=== PATIENT | female | born 1955 | race Caucasian/White ===

== ENCOUNTER 2017-08-18 14:39 | Emergency (ER) | payer BC ==
[2017-08-18 15:08] VITALS: BP 161/90
--- NOTE | 2017-08-18 15:32 | RAD ---
HISTORY: Left ankle and heel pain COMPARISONS: None VIEWS: 6, Frontal, lateral, and oblique views of the left ankle and left foot FINDINGS: BONE DENSITY: There is diffuse osteopenia. BONES: There is no displaced fracture. There are calcaneal enthesophytes. JOINTS: There is no arthropathy. ALIGNMENT: There is no dislocation. SOFT TISSUES: Unremarkable. OTHER FINDINGS: None. IMPRESSION: 1. OSTEOPENIA. 2. HEEL SPURS. 3. NO ACUTE OSSEOUS INJURY. IF SYMPTOMS PERSIST, RECOMMEND REPEAT IMAGING.
--- NOTE | 2017-08-27 14:49 | UC ---
Chaz Almonte Natalie, scribed for Eldon Crabtree MD on 08/18/17 at 1523 . Lower Extremity/Ankle HPI - HPI Summary HPI Summary: The patient is a 62 y/o F presenting to [facility] c/o left foot and ankle pain starting in May 2017. She was at work a few months ago when she slid off her clog, and the pain has been present since then. The pain is worst in her heel, and is currently rated 3/10 in severity. The pt claims she thinks she has plantar fasciitis because she's had similar pain in the past, but it was much more mild than this. She has hx of HTN and anxiety, and she recently had varicose vein surgery. Nonsmoker. - History of Current Complaint Chief Complaint: UCLowerExtremity Stated Complaint: LEFT FOOT COMPLAINT Hx Obtained From: Patient Onset/Duration: Gradual Onset, Lasting Weeks - starting in May 2017, Still Present Severity Initially: Moderate Severity Currently: Mild Pain Intensity: 3 Pain Scale Used: 0-10 Numeric Aggravating Factor(s): Nothing Alleviating Factor(s): Nothing Able to Bear Weight: Yes - Allergies/Home Medications Allergies/Adverse Reactions: Allergies Allergy/AdvReac Type Severity Reaction Status Date / Time meperidine [From Demerol] AdvReac GI Upset Verified 08/18/17 15:00 Home Medications: Home Medications Albuterol HFA INHALER* [Ventolin HFA Inhaler*] 1 puff INH Q4H PRN 08/18/17 [ History Confirmed 08/18/17] Bromelains [Bromelain] 500 mg PO BID 08/18/17 [History Confirmed 08/18/17] Bupropion XL* [Wellbutrin XL *] 150 mg PO DAILY 08/18/17 [History Confirmed ] Loratadine [Claritin 10 MG CAP] 10 mg PO DAILY 08/18/17 [History Confirmed 08/18] Nebivolol HCl [Bystolic] 10 mg PO DAILY 08/18/17 [History Confirmed 08/18/17] PMH/Surg Hx/FS Hx/Imm Hx Other Cardiovascular History: Hypertension Other Psychological History: Anxiety - Surgical History Surgery Procedure, Year, and Place: urinary stricture surgery. cataract removal. orbital fracture repair. varicose vein surgery L leg 2017 - Family History Known Family History: Positive: Cardiac Disease, Hypertension, Other - breast cancer in mother, kidney cancer in father - Social History Alcohol Use: None Substance Use Type: None Smoking Status (MU): Never Smoked Tobacco - Immunization History Vaccination Up to Date: Yes Review of Systems Skin: Negative - bruising Musculoskeletal: Other: - pain in left ankle and heel All Other Systems Reviewed And Are Negative: Yes Physical Exam Triage Information Reviewed: Yes Appearance: Well-Appearing Vital Signs: Initial Vital Signs Temp 98 F 08/18/17 15:01 Pulse 89 08/18/17 15:01 Resp 18 08/18/17 15:01 BP 161/90 08/18/17 15:01 Pulse Ox 95 08/18/17 15:01 Vital Signs Reviewed: Yes Eyes: Positive: Conjunctiva Clear ENT: Positive: Normal ENT inspection Respiratory: Positive: Lungs clear, Normal breath sounds, No respiratory distress Cardiovascular: Positive: RRR, No Murmur, Pulses Normal Musculoskeletal: Positive: Strength Intact, ROM Intact, Other: - left foot no deformity, no STS, no tenderness over the achilles tendon, no tenderness over the base of 5th metatarsal, non tender over the lateral and medial malleolus. Mild tender over the calcaneus. No bruising, no redness, no deformity. Neurological: Positive: Alert, Muscle Tone Normal Psychological: Positive: Normal Response To Family Diagnostics - Radiology Ankle XR Xray Interpretation: No Acute Changes - 1. Osteopenia. 2. Heel spurs. 3. No acute osseous injury. If symptoms persist, recommend repeat imaging. [facility] physician has reviewed this report. Radiology Interpretation Completed By: Radiologist Foot XR Xray Interpretation: No Acute Changes - 1. Osteopenia. 2. Heel spurs. 3. No acute osseous injury. If symptoms persist, recommend repeat imaging. [facility] physician has reviewed this report. Radiology Interpretation Completed By: Radiologist Lower Extremity Course/Dx - Course Course Of Treatment: the patient was told to follow up with pMD for BP recheck, and was told to follow up with orthopedics regarding her foot and for further recommendation. - Differential Dx/Diagnosis Provider Diagnoses: hypertension. plantar faciitis Discharge - Sign-Out/Discharge Documenting (check all that apply): Discharge/Admit/Transfer - Discharge Plan Condition: Good Disposition: HOME Discharge Disposition Comment: goood condition; home Patient Education Materials: Plantar Fasciitis (ED), Hypertension (ED), Plantar Fasciitis Exercises (ED) Referrals: Rosamaria Gutierrez MD [Primary Care Provider] - 2 Days Kolton Garcia MD [Medical Doctor] - 2 Days - Billing Disposition and Condition Condition: GOOD Disposition: HOME The documentation as recorded by the Chaz woody Natalie accurately reflects the service I personally performed and the decisions made by me, Eldon Crabtree MD.
== END 2017-08-18 15:45 | disposition home or self-care (01) ==
LOC: UCEAST 14:39
DX: M72.2 Plantar fascial fibromatosis (principal); M85.872 Other specified disorders of bone density and structure, left ankle and foot; M77.32 Calcaneal spur, left foot; I10 Essential (primary) hypertension; F41.9 Anxiety disorder, unspecified; Z88.5 Allergy status to narcotic agent
CPT/HCPCS: 99211; G0463